=== PATIENT | female | born 1980 | race African-American/Black ===

== ENCOUNTER 2017-09-26 13:20 | Emergency (ER) | payer MEDICARE, MEDICAID ==
[2017-09-26] MEDS ORDERED: CLONIDINE HCL 0.2 MG TABLET PO ONE (13:39)
[2017-09-26] MEDS ORDERED: LISINOPRIL 10 MG TABLET PO ONE (13:45)
[2017-09-26] MEDS ORDERED: METOPROLOL TARTRATE 50 MG TABLET PO ONE (13:45)
[2017-09-26] MEDS ORDERED: TRAMADOL HCL 50 MG TABLET PO ONE (13:45)
[2017-09-26] MEDS ORDERED: FUROSEMIDE 20 MG TABLET PO ONE (13:45)
--- NOTE | 2017-09-26 13:48 | ER Document Report ---
ED Headache - General Chief Complaint: Headache Stated Complaint: BLOOD PRESSURE PROBLEMS Time Seen by Provider: 09/26/17 13:38 Notes: The patient is a 37-year-old female, past medical history hypertension, chronic headaches, presents with her usual frontal headache that occurs when she does not take her blood pressure medications. She is switching primary care physicians to [facility] and has her first appointment in 3 weeks. She last took her blood pressure medications and tramadol 2 weeks ago. She denies sudden onset of headache, blurry vision, fevers, neck stiffness, chest pain, shortness of breath, focal weakness, numbness, tingling, back pain, leg swelling , nausea or vomiting. TRAVEL OUTSIDE OF THE [place] IN LAST 30 DAYS: No - Related Data Allergies/Adverse Reactions: No Known Allergies Allergy (Verified 06/27/15 20:08) Past Medical History - General Information source: Patient - Social History Smoking Status: Current Every Day Smoker Chew tobacco use (# tins/day): No Frequency of alcohol use: None Drug Abuse: None Family History: Reviewed & Not Pertinent Patient has suicidal ideation: No Patient has homicidal ideation: No - Past Medical History Cardiac Medical History: Reports: Hx Congestive Heart Failure, Hx Hypertension Renal/ Medical History: Reports: Hx Renal Insufficiency. Denies: Hx Peritoneal Dialysis Psychiatric Medical History: Reports: Hx Anxiety, Hx Bipolar Disorder, Hx Depression Past Surgical History: Reports: Hx Tubal Ligation - Immunizations Immunizations up to date: No Hx Diphtheria, Pertussis, Tetanus Vaccination: No Review of Systems - Review of Systems Notes: REVIEW OF SYSTEMS: CONSTITUTIONAL: -fevers, -chills EENT: -eye pain, -difficulty swallowing, -nasal congestion CARDIOVASCULAR: -chest pain, -syncope. RESPIRATORY: -cough, -SOB GASTROINTESTINAL: -abdominal pain, -nausea, -vomiting, -diarrhea GENITOURINARY: -dysuria, -hematuria MUSCULOSKELETAL: -back pain, -neck pain SKIN: -rash or skin lesions. HEMATOLOGIC: -easy bruising or bleeding. LYMPHATIC: -swollen, enlarged glands. NEUROLOGICAL: -altered mental status or loss of consciousness, +headache, - neurologic symptoms PSYCHIATRIC: -anxiety, -depression. ALL OTHER SYSTEMS REVIEWED AND NEGATIVE. Physical Exam - Vital signs Vitals: Temp Pulse Resp BP Pulse Ox 98.3 F 105 H 16 217/145 H 98 09/26/17 13:34 09/26/17 13:34 09/26/17 13:34 09/26/17 13:34 09/26/17 13:34 - Notes Notes: PHYSICAL EXAMINATION: GENERAL: Well-appearing, well-nourished and in no acute distress. HEAD: Atraumatic, normocephalic. EYES: Pupils equal round and reactive to light, extraocular movements intact, sclera anicteric, conjunctiva are normal. ENT: nares patent, oropharynx clear without exudates. Moist mucous membranes. NECK: Normal range of motion, supple without lymphadenopathy LUNGS: Breath sounds clear to auscultation bilaterally and equal. No wheezes rales or rhonchi. HEART: Regular rate and rhythm without murmurs ABDOMEN: Soft, nontender, normoactive bowel sounds. No guarding, no rebound. No masses appreciated. EXTREMITIES: Normal range of motion, no pitting or edema. No cyanosis. NEUROLOGICAL: Cranial nerves grossly intact. Normal speech, normal gait. Normal sensory and motor exams. PSYCH: Normal mood, normal affect. SKIN: Warm, Dry, normal turgor, no rashes or lesions noted. Course - Re-evaluation Re-evalutation: Patient's headache is likely same as her prior headaches when she does not take her blood pressure medications. She ran out of her blood pressure medication and is requesting a refill until her new primary care appointment in 4 weeks. Will provide this to her. Her headache is not consistent with SAH, ICH or meningitis at this time. - Vital Signs Vital signs: Temp Pulse Resp BP Pulse Ox 98.3 F 105 H 16 217/145 H 98 09/26/17 13:34 09/26/17 13:34 09/26/17 13:34 09/26/17 13:34 09/26/17 13:34 - Laboratory Result Diagrams: 09/26/17 14:05 Laboratory results interpreted by me: 09/26/17 14:05 Sodium 145.7 H Est GFR (Non-Af Amer) 50 L Discharge - Discharge Clinical Impression: Headache Qualifiers: Headache type: unspecified Headache chronicity pattern: chronic headache Intractability: not intractable Qualified Code(s): R51 - Headache Hypertension Qualifiers: Hypertension type: unspecified Qualified Code(s): I10 - Essential (primary) hypertension Condition: Stable Disposition: HOME, SELF-CARE Additional Instructions: HEADACHE: The physician does not feel that the headache you are experiencing has a serious underlying cause. Most headaches are due to emotional stress, with resultant muscle tension (tension headache). Occasionally, headaches are secondary to changes in the blood vessels of the scalp (vascular headache and migraine headache). Sometimes, a headache is the first symptom of another developing illness, such as a viral infection. You have no evidence of stroke, bleeding, meningitis, or other serious cause of your headache. The treatment of headaches varies with the severity and cause of the pain. Not all headaches need pain shots. In fact, there is evidence that using narcotics for headaches may make them worse in the long run. The physician will determine the therapy that's in your best interest. If you develop a fever, if the headache is different from any you've previously experienced, or if the headache progressively worsens, then call your physician at once or go to the emergency room. ORAL NARCOTIC MEDICATION: You have been given a prescription for pain control. This medication is a narcotic. It's best taken with food, as nausea can result if taken on an empty stomach. Don't operate machinery or drive within six hours of taking this medication. Do not combine this medicine with alcohol, or with any medication which can cause sedation (such as cold tablets or sleeping pills) unless you get permission from the physician. Narcotics tend to cause constipation. If possible, drink plenty of fluids and eat a diet high in fiber and fruits. Please be aware that prescription narcotics also have the potential for abuse. People become addicted to these medications because of the general sense of wellbeing that they induce. This feeling along with a significant reduction in tension, anxiety, and aggression provides a stimulating seductive quality to these drugs. Once your pain is under control, we encourage you to discard your unused narcotics. FOLLOW-UP CARE: If you have been referred to a physician for follow-up care, call the physician s office for an appointment as you were instructed or within the next two days. If you experience worsening or a significant change in your symptoms, notify the physician immediately or return to the Emergency Department at any time for re-evaluation. HIGH BLOOD PRESSURE REQUIRING TREATMENT: Your blood pressure is high. This is called "hypertension." Your history and exam suggest that this is not a temporary problem. You need treatment of your blood pressure. If left untreated, high blood pressure greatly increases your risk of heart attack and stroke. Please don't ignore this problem. If you have blood pressure medicine but aren't using it regularly, start taking it again. Some simple things you can do to help are: Get some aerobic exercise for at least 20 minutes on a daily basis. (See your doctor before beginning any new exercise program.) Eat a low-fat diet. Lose excess weight. Avoid salty foods and avoid adding salt to any of the foods you eat. Avoid diet pills, decongestants, "energizing" herbs, and other medicines that elevate blood pressure. There are many different medicines that treat blood pressure. If your medication causes unpleasant side effects, call your doctor. There are others you can try. Treating hypertension is a life-long investment in your health. CLONIDINE (CATAPRES): Clonidine is blood-pressure medicine. It works in your brain, making the nervous system relax the blood vessels. This medicine can also be used for symptoms of narcotic withdrawal. Clonidine frequently causes dry mouth, drowsiness, and dizziness. These symptoms go away as you continue to use it. Rest for the first couple of days. Don't drive or use machinery until you're back to normal. Never stop clonidine suddenly! There can be a "rebound" severe increase in blood pressure, headache, and agitation. Be sure you always have enough of the medicine. Call the doctor if you have any new symptoms such as skin rash, weakness, severe lightheadedness, chest pain, headache, or depression. ANGIOTENSIN CONVERTING ENZYME INHIBITOR MEDICATION: "GRISEL inhibitor" drugs are used to lower high blood pressure (or to reduce the "work" of the heart in patients with heart failure). These drugs block an enzyme that makes your blood vessels constrict and makes you retain salt. The result is lower blood pressure. GRISEL inhibitors cause few side effects. The most common side effect is a dry nagging cough. Occasionally, lightheadedness may occur while you get used to the medicine. Some patients may retain extra potassium (this is a problem if you are taking potassium supplements, potassium-containing salt substitutes, or a potassium-retaining drug such as triamterene, spironolactone, or amiloride) . If you are taking lithium, the lithium level must be rechecked after starting an GRISEL inhibitor. GRISEL inhibitors should NOT be used during . Contact the doctor or return if you develop severe lightheadedness, wheeze , weakness, palpitations or other new symptoms. BETA BLOCKERS: You have been given a prescription for a beta-vish medication. This class of drugs is used for many purposes, including angina, high blood pressure , heart rhythm disturbances, tremors, and migraines. The medication works by interfering with the effects of the sympathetic nervous system (the sympathetic system has adrenaline-like effects of constricting blood vessels, increasing heart rate, and increasing blood pressure). This medication is usually well-tolerated. However, some patients have side effects such as fatigue, depression, or dizziness. Persons with asthma may develop wheezing from this medicine. Contact your doctor if you are bothered by any side effects. Do not take any cold or allergy medication without first consulting your doctor. Do not stop the medicine without consulting your doctor, as a "rebound " worsening of your condition can result. FOLLOW-UP CARE: If you have been referred to a physician for follow-up care, call the physician s office for an appointment as you were instructed or within the next two days. If you experience worsening or a significant change in your symptoms, notify the physician immediately or return to the Emergency Department at any time for re-evaluation. Prescriptions: Clonidine HCl 0.2 mg PO BID 30 Days tablet Furosemide [Lasix 20 mg Tablet] 20 mg PO QAM #30 tablet Lisinopril 40 mg PO DAILY 30 Days tablet Metoprolol Tartrate 50 mg PO BID 30 Days tablet Tramadol HCl 50 mg PO Q8H PRN #15 tablet PRN Reason: Forms: Elevated Blood Pressure Referrals: [facility] [Outside] - Follow up as needed
[2017-09-26 14:52] LABS: ALANINE AMINOTRANSFERASE 32 U/L (9-52); ALBUMIN 4.7 g/dL (3.5-5.0); ALKALINE PHOSPHATASE 96 U/L (38-126); ANION GAP 15 (5-19); ASPARTATE AMINO TRANSFERASE 26 U/L (14-36); BILIRUBIN,DIRECT 0.4 mg/dL (0.0-0.4); BILIRUBIN,TOTAL 0.5 mg/dL (0.2-1.3); BLOOD UREA NITROGEN 16 mg/dL (7-20); CALCIUM 10.2 mg/dL (8.4-10.2); CARBON DIOXIDE 28 mmol/L (22-30); CHLORIDE 103 mmol/L (98-107); GLUCOSE 77 mg/dL (75-110); POTASSIUM 4.3 mmol/L (3.6-5.0); SODIUM 145.7 mmol/L (137-145)
[2017-09-26 15:15] VITALS: BP 205/124
[2017-09-26] MEDS ORDERED: ACETAMINOPHEN 325 MG TABLET PO ONE (15:15)
[2017-09-26] MEDS ORDERED: NAPROXEN 250 MG TABLET PO ONE (15:15)
== END 2017-09-26 15:22 | disposition home or self-care (01) ==
LOC: ER 13:20
DX: R51 Headache (principal); F17.200 Nicotine dependence, unspecified, uncomplicated; I50.9 Heart failure, unspecified; I11.0 Hypertensive heart disease with heart failure
CPT/HCPCS: 99283; 36415; 80053; A9270 ×7

== ENCOUNTER 2018-04-03 19:17 | Emergency (ER) | payer MEDICARE, MEDICAID ==
[2018-04-03] MEDS ORDERED: CLONIDINE HCL 0.2 MG TABLET PO ONE ×2 (20:08→20:33)
--- NOTE | 2018-04-03 20:09 | ER Document Report ---
ED Medical Screen (RME) - General Chief Complaint: Headache Stated Complaint: HEADACHE, BLOOD PRESSURE CONSERNS Time Seen by Provider: 04/03/18 20:07 Notes: 37 years old female with a history of hypertension taking metoprolol lisinopril clonidine and also Lasix. Has not taken any medications today only took 1 of them yesterday presents with a headache and an elevated blood pressure over 200 systole. TRAVEL OUTSIDE OF THE [place] IN LAST 30 DAYS: No - Related Data Allergies/Adverse Reactions: No Known Allergies Allergy (Verified 06/27/15 20:08) Past Medical History - Past Medical History Cardiac Medical History: Reports: Hx Congestive Heart Failure, Hx Hypertension Renal/ Medical History: Reports: Hx Renal Insufficiency. Denies: Hx Peritoneal Dialysis Psychiatric Medical History: Reports: Hx Anxiety, Hx Bipolar Disorder, Hx Depression Past Surgical History: Reports: Hx Tubal Ligation - Immunizations Immunizations up to date: No Hx Diphtheria, Pertussis, Tetanus Vaccination: No
[2018-04-03] MEDS ORDERED: LISINOPRIL 10 MG TABLET PO ONE (20:32)
[2018-04-03] MEDS ORDERED: AMLODIPINE BESYLATE 5 MG TABLET PO ONE (20:33)
[2018-04-03] MEDS ORDERED: METOPROLOL TARTRATE 50 MG TABLET PO ONE (20:33)
[2018-04-03] MEDS ORDERED: METOCLOPRAMIDE HCL INJ/PF 10 MG/2 ML SDV IV ONE (20:44)
--- NOTE | 2018-04-03 20:55 | RADIOLOGY REPORT (SQ) ---
EXAM DESCRIPTION: CT HEAD WITHOUT COMPLETED DATE/TIME: 04/03/2018 8:39 pm REASON FOR STUDY: Headache COMPARISON: None. TECHNIQUE: Axial images acquired through the brain without intravenous contrast. Images reviewed wi th bone, brain and subdural windows. Additional sagittal and coronal reconstructions were generated. Images stored on PACS. All CT scanners at this facility use dose modulation, iterative reconstruction, and/or weight based d osing when appropriate to reduce radiation dose to as low as reasonably achievable (ALARA). [facility]: Dose Right [facility]: CareDose [facility]: Dose Right [facility]: Teradose 4D [facility]: DailyBurn RADIATION DOSE: CT Rad equipment meets quality standard of care and radiation dose reduction techniq ues were employed. CTDIvol: 53.2 mGy. DLP: 1070 mGy-cm. mGy. LIMITATIONS: None. FINDINGS: VENTRICLES: Normal size and contour. CEREBRUM: No masses. No hemorrhage. No midline shift. No evidence for acute infarction. Normal gra y/white matter differentiation. No areas of low density in the white matter. CEREBELLUM: No masses. No hemorrhage. No alteration of density. No evidence for acute infarction. EXTRAAXIAL SPACES: No fluid collections. No masses. ORBITS AND GLOBE: No intra- or extraconal masses. Normal contour of globe without masses. CALVARIUM: No fracture. PARANASAL SINUSES: No fluid or mucosal thickening. SOFT TISSUES: No mass or hematoma. OTHER: No other significant finding. IMPRESSION: NORMAL BRAIN CT WITHOUT CONTRAST. EVIDENCE OF ACUTE STROKE: NO. COMMENT: Quality ID # [id number]: Final reports with documentation of one or more dose reduction techniques (e.g., Automated exposure control, adjustment of the mA and/or kV according to patient size, use of iterative reconstruction technique) TECHNICAL DOCUMENTATION: JOB ID: [id number] [employer]- All Rights Reserved Reading location - IP/workstation name: [email or web address]
--- NOTE | 2018-04-03 20:59 | ER Document Report ---
ED General - General Chief Complaint: Headache Stated Complaint: HEADACHE, BLOOD PRESSURE CONSERNS Time Seen by Provider: 04/03/18 20:07 Notes: Patient is a 37-year-old female with a past medical history of essential hypertension currently off all medications. Patient states she ran out 2 days ago, has been unable to get the refill that she does not currently have a primary care physician. She notes that since running out of her medications she has noticed her blood pressures are much higher and she has had a dull, throbbing, global headache. Nothing improves or worsens the headache. States this feels the same as when she has had headaches in the past with high blood pressure. She denies any abrupt onset of the headache. No weakness, numbness, confusion, fever or constitutional symptoms. No chest pain or shortness of breath. TRAVEL OUTSIDE OF THE [place] IN LAST 30 DAYS: No - Related Data Allergies/Adverse Reactions: No Known Allergies Allergy (Verified 06/27/15 20:08) Past Medical History - General Information source: Patient - Social History Smoking Status: Current Every Day Smoker Chew tobacco use (# tins/day): No Frequency of alcohol use: Occasional Drug Abuse: None Lives with: Family Family History: Reviewed & Not Pertinent Patient has suicidal ideation: No Patient has homicidal ideation: No - Past Medical History Cardiac Medical History: Reports: Hx Congestive Heart Failure, Hx Hypertension Renal/ Medical History: Reports: Hx Renal Insufficiency. Denies: Hx Peritoneal Dialysis Psychiatric Medical History: Reports: Hx Anxiety, Hx Bipolar Disorder, Hx Depression Past Surgical History: Reports: Hx Tubal Ligation - Immunizations Immunizations up to date: No Hx Diphtheria, Pertussis, Tetanus Vaccination: No Review of Systems - Review of Systems Notes: Constitutional: Negative for fever. HENT: Negative for sore throat. Eyes: Negative for visual changes. Cardiovascular: Negative for chest pain. Respiratory: Negative for shortness of breath. Gastrointestinal: Negative for abdominal pain, vomiting or diarrhea. Genitourinary: Negative for dysuria. Musculoskeletal: Negative for back pain. Skin: Negative for rash. Neurological: Positive for headache 10 point ROS negative except as marked above and in HPI. Physical Exam - Vital signs Vitals: Temp Pulse Resp BP Pulse Ox 99.0 F 81 20 211/125 H 99 04/03/18 19:58 04/03/18 19:58 04/03/18 19:58 04/03/18 19:58 04/03/18 19:58 Interpretation: Hypertensive Notes: PHYSICAL EXAMINATION: GENERAL: Well-appearing, well-nourished and in no acute distress. HEAD: Atraumatic, normocephalic. EYES: Pupils equal round and reactive to light, extraocular movements intact, sclera anicteric, conjunctiva are normal. ENT: nares patent, oropharynx clear without exudates. Moist mucous membranes. NECK: Normal range of motion, supple without lymphadenopathy LUNGS: Breath sounds clear to auscultation bilaterally and equal. No wheezes rales or rhonchi. HEART: Regular rate and rhythm without murmurs ABDOMEN: Soft, nontender, normoactive bowel sounds. No guarding, no rebound. No masses appreciated. EXTREMITIES: Normal range of motion, no pitting or edema. No cyanosis. NEUROLOGICAL: Face symmetric. Tongue protrudes midline. Extraocular motions intact. Pupils are 2 mm and equally reactive. Normal speech, normal gait. 5 out of 5 strength in both the distal and proximal upper and lower extremities bilaterally. Sensation is grossly intact throughout. Finger to nose testing normal. Pronator drift normal. PSYCH: Normal mood, normal affect. SKIN: Warm, Dry, normal turgor, no rashes or lesions noted. Course - Re-evaluation Re-evalutation: 04/03/18 21:00 Patient presents with significant elevation of her blood pressure due to being out of all 4 of her blood pressure medications for the past 2 days. The patient does present with a global, throbbing, aching headache that started gradually and has worsened over a period of time roughly 12-24 hours. She states this headache feels exactly the same as when she has had headaches in the context of high blood pressure in the past when off of her medications. I do not suspect an intracranial bleed or subarachnoid hemorrhage. Of note a CT was obtained in triage, has been reviewed and is noted to be normal although I do not believe this was indicated. Her blood pressure has improved after receiving her normal blood pressure medications at home. I have transitioned her from furosemide to amlodipine. I have advised outpatient follow-up to for chronic management of her blood pressure. She otherwise is very well in appearance and in no distress of any kind. At this time will discharge with return precautions and follow-up recommendations. Verbal discharge instructions given a the bedside and opportunity for questions given. Medication warnings reviewed. Patient is in agreement with this plan and has verbalized understanding of return precautions and the need for primary care follow-up in the next 24-72 hours. - Vital Signs Vital signs: Temp Pulse Resp BP Pulse Ox 98.6 F 72 20 155/105 H 100 04/03/18 22:00 04/03/18 22:50 04/03/18 20:12 04/03/18 22:50 04/03/18 22:00 - Diagnostic Test Radiology reviewed: Image reviewed, Reports reviewed Radiology results interpreted by me: 04/03/18 21:01 CT head: No acute intrarenal bleed or mass Discharge - Discharge Clinical Impression: Essential hypertension, Medication refill Headache Qualifiers: Headache type: unspecified Headache chronicity pattern: acute headache Intractability: not intractable Qualified Code(s): R51 - Headache Condition: Good Disposition: HOME, SELF-CARE Additional Instructions: You were seen today for blood pressure that was high. This is a long-term risk factor for multiple medical problems including heart attack and stroke. However, the blood pressure in of itself will not cause you to have an acute stroke or heart attack over the course of just several days or weeks. You need to have a gradual reduction of your blood pressure back to normal levels over the next several months in conjunction with your primary care physician. Please take all medications as prescribed. Return if you develop headache, weakness, numbness, chest pain, pass out, or have any other symptoms that are concerning to you. Prescriptions: Amlodipine Besylate [Norvasc 5 mg Tablet] 5 mg PO DAILY #30 tablet Clonidine [Catapres-Tts 2 (0.2 mg/24 Hr) Transderm Ptc] 1 each TD DAILY #4 patch.tdwk Lisinopril [Prinivil 40 mg Tablet] 40 mg PO DAILY #30 tablet Metoclopramide HCl [Reglan 10 mg Tablet] 1 - 2 tab PO ASDIR PRN #25 tablet PRN Reason: Metoprolol Tartrate [Lopressor 100 mg Tablet] 100 mg PO Q12 #60 tab Referrals: DARIUS GARCIA, [facility] [Primary Care Provider] - Follow up as needed
[2018-04-03] MEDS ORDERED: KETOROLAC TROMETHAMINE INJ/PF 30 MG/1 ML SDV IV ONE (22:10)
[2018-04-03 23:19] VITALS: BP 155/105
== END 2018-04-03 22:49 | disposition home or self-care (01) ==
LOC: ER 19:17
DX: R51 Headache (principal); I50.9 Heart failure, unspecified; I11.0 Hypertensive heart disease with heart failure; Z98.51 Tubal ligation status
CPT/HCPCS: 99284; 96374; 70450; A9270 ×4; J2765

== ENCOUNTER 2019-07-30 06:25 | Emergency (ER) | payer MEDICARE, MEDICAID ==
[2019-07-30 06:41] VITALS: BP 136/93
[2019-07-30] MEDS ORDERED: ALPRAZOLAM 0.5 MG TABLET PO ONE (07:25)
--- NOTE | 2019-07-30 07:30 | ER Document Report ---
HPI - HPI Time Seen by Provider: 07/30/19 07:06 Pain Level: 1 Context: 39-year-old female presents for refills on Xanax and Lunesta. Patient states she has been out for the past 3 days. Patient states she missed her appointment with mental health because she was out of town. - REPRODUCTIVE Reproductive: DENIES: : Past Medical History - Social History Smoking Status: Current Some Day Smoker Chew tobacco use (# tins/day): No Frequency of alcohol use: Occasional Drug Abuse: None Family History: Reviewed & Not Pertinent Patient has suicidal ideation: No Patient has homicidal ideation: No - Past Medical History Cardiac Medical History: Reports: Hx Congestive Heart Failure, Hx Hypertension Renal/ Medical History: Reports: Hx Renal Insufficiency. Denies: Hx Peritoneal Dialysis Psychiatric Medical History: Reports: Hx Anxiety, Hx Bipolar Disorder, Hx Depression Past Surgical History: Reports: Hx Tubal Ligation - Immunizations Immunizations up to date: No Hx Diphtheria, Pertussis, Tetanus Vaccination: No Vertical Provider Document - CONSTITUTIONAL Agree With Documented VS: Yes Notes: GENERAL: Well-appearing, well-nourished and in no acute distress. HEAD: Atraumatic, normocephalic. EYES: Extraocular movements intact, sclera anicteric, conjunctiva are normal. NECK: Normal range of motion, supple without lymphadenopathy or JVD. Lungs: No tachypnea. No signs of respiratory distress. EXTREMITIES: Normal range of motion, no pitting or edema. No clubbing or cyanosis. NEUROLOGICAL: Cranial nerves II through XII grossly intact. Normal speech, normal gait. PSYCH: Anxious. SKIN: Warm, Dry, normal turgor, no rashes or lesions noted. - INFECTION CONTROL TRAVEL OUTSIDE OF THE [place] IN LAST 30 DAYS: No Course - Re-evaluation Re-evalutation: 07/30/19 39-year-old female presents requesting refills on her Xanax and [place] nesta. Patient went to her PCP and was told it was too early to refill these. Patient states she did have an appointment with her mental health provider but missed it because she was out of town. Discussed with patient that we do not refill prescriptions of Xanax or Lunesta from the ER. Discussed other options including Atarax with patient. Patient states she will try the Atarax. Patient also given further resources for outpatient mental health. Return precautions given. Patient given close follow-up with PCP. Patient voices understanding and agrees with plan of care. - Vital Signs Vital signs: Temp Pulse Resp BP Pulse Ox 98.4 F 81 20 136/93 H 100 07/30/19 06:40 07/30/19 06:40 07/30/19 06:40 07/30/19 06:40 07/30/19 06:40 Discharge - Discharge Clinical Impression: Encounter for medical screening examination, Anxiety Condition: Stable Disposition: HOME, SELF-CARE Instructions: Anxiety ([facility]) Additional Instructions: Please take Atarax as prescribed. Please follow-up with 1 of the resources given to you. Please follow-up with your primary care doctor for further refills of your Xanax and Lunesta. Return immediately to ER if you start having any worsening symptoms, including chest pain, shortness of breath, thoughts of wanting to hurt yourself or anyone else, fever, abdominal pain, nausea/vomiting, or any other symptoms that are concerning to you. Prescriptions: Hydroxyzine Pamoate [Vistaril 50 mg Capsule] 50 mg PO DAILY #15 capsule Referrals: DARIUS GARCIA NP [[facility]] - Follow up in 3-5 days
== END 2019-07-30 08:01 | disposition home or self-care (01) ==
LOC: ER 06:25
DX: F41.9 Anxiety disorder, unspecified (principal); Z76.0 Encounter for issue of repeat prescription; I10 Essential (primary) hypertension; F17.200 Nicotine dependence, unspecified, uncomplicated
CPT/HCPCS: 99281; A9270

== ENCOUNTER 2019-08-10 19:27 | Emergency (ER) | payer MEDICARE, MEDICAID ==
[2019-08-10 19:34] VITALS: BP 135/93
--- NOTE | 2019-08-10 19:58 | ER Document Report ---
HPI - HPI Patient complains to provider of: Anxiety, insomnia Time Seen by Provider: 08/10/19 19:42 Onset: Last week Onset/Duration: Persistent Pain Level: 3 Context: Patient presents complaining of anxiety and insomnia. Patient states that she has been unable to follow-up with her mental health provider due to the Covid 19 outbreak that is because offices to close. Patient states that they were able to refill some of her medications but not these as these are controlled substances. Patient states that the situation with the Covid 19 has made her very anxious and worried about the health of her children and grandchildren further worsening her anxiety and insomnia symptoms. Associated Symptoms: Other - Anxiety, insomnia Exacerbated by: Denies Relieved by: Denies Similar symptoms previously: Yes Recently seen / treated by doctor: No - ROS ROS below otherwise negative: Yes Systems Reviewed and Negative: Yes All other systems reviewed and negative - CONSTITUTIONAL Constitutional: DENIES: Fever, Chills - CARDIOVASCULAR Cardiovascular: REPORTS: Chest pain - intermittent - GASTROINTESTINAL Gastrointestinal: DENIES: Nausea - REPRODUCTIVE Reproductive: DENIES: : - DERM Skin Color: Normal Skin Problems: None Past Medical History - General Information source: Patient - Social History Smoking Status: Current Every Day Smoker Chew tobacco use (# tins/day): No Frequency of alcohol use: Occasional Drug Abuse: Marijuana Lives with: Family Family History: Reviewed & Not Pertinent Patient has suicidal ideation: No Patient has homicidal ideation: No - Past Medical History Cardiac Medical History: Reports: Hx Congestive Heart Failure, Hx Hypertension Renal/ Medical History: Reports: Hx Renal Insufficiency. Denies: Hx Peritoneal Dialysis Psychiatric Medical History: Reports: Hx Anxiety, Hx Bipolar Disorder, Hx Depression Past Surgical History: Reports: Hx Tubal Ligation - Immunizations Immunizations up to date: No Hx Diphtheria, Pertussis, Tetanus Vaccination: No Vertical Provider Document - CONSTITUTIONAL Agree With Documented VS: Yes Exam Limitations: No Limitations General Appearance: WD/WN Notes: Patient anxious, tearful when discussing her situation and concerns - INFECTION CONTROL TRAVEL OUTSIDE OF THE [place] IN LAST 30 DAYS: No - HEENT HEENT: Atraumatic, Normocephalic - NECK Neck: Normal Inspection, Supple - RESPIRATORY Respiratory: Breath Sounds Normal, No Respiratory Distress, Chest Non-Tender - CARDIOVASCULAR Cardiovascular: Regular Rate, Regular Rhythm, No Murmur - BACK Back: Normal Inspection - MUSCULOSKELETAL/EXTREMETIES Musculoskeletal/Extremeties: MAEW, FROM - NEURO Level of Consciousness: Awake, Alert Motor/Sensory: No Motor Deficit - DERM Integumentary: Warm, Dry Course - Re-evaluation Re-evalutation: 08/10/19 19:54 Reviewed controlled substance database did demonstrate the patient has had prescriptions for the Lunesta and Xanax in the past but recently ran out earlier this month. Due to the Covid 19 outbreak her mental health office has closed and she cannot get refills of her medication and the situation with the Covid 19 outbreak is made her more anxious causing her to have difficulty to sleep. Patient without any suicidal or homicidal ideations. - Vital Signs Vital signs: Temp Pulse Resp BP Pulse Ox 98.8 F 81 13 135/93 H 100 08/10/19 19:32 08/10/19 19:32 08/10/19 19:32 08/10/19 19:32 08/10/19 19:32 Discharge - Discharge Clinical Impression: Anxiety, Medication refill Insomnia Qualifiers: Insomnia type: unspecified Qualified Code(s): G47.00 - Insomnia, unspecified Condition: Stable Disposition: HOME, SELF-CARE Instructions: Anxiety ([facility]) Additional Instructions: Return immediately for any new or worsening symptoms Followup with your primary care provider, call tomorrow to make a followup appointment Follow-up with your mental health provider for recheck and refill of your medications Prescriptions: Eszopiclone 3 mg PO QHS PRN #7 tablet PRN Reason: Alprazolam 1 mg PO BID PRN #15 tablet PRN Reason: Referrals: [facility] [Provider Group] - Follow up tomorrow
== END 2019-08-10 20:01 | disposition home or self-care (01) ==
LOC: ER 19:27
DX: Z76.0 Encounter for issue of repeat prescription (principal); F41.9 Anxiety disorder, unspecified; G47.00 Insomnia, unspecified; F17.200 Nicotine dependence, unspecified, uncomplicated; I50.9 Heart failure, unspecified; I11.0 Hypertensive heart disease with heart failure; Z98.51 Tubal ligation status
CPT/HCPCS: 99281

== ENCOUNTER → 2019-11-26 | Outpatient (CLI) | payer MEDICARE, MEDICAID ==
--- NOTE | 2019-11-26 15:48 | ER RDC ASSESSMENT REPORT ---
Intake - In the Last 14 days Have you traveled outside [place]?: No Have you been in close contact with someone CONFIRMED: Yes Worked in Healthcare?: No - Symptoms Subjective Fever([place] feverish): No Chills: No Muscule Aches: No Runny Nose: Yes Sore Throat: No Cough (New or worsening chronic cough): No Shortness of breath: No Nausea or Vomiting: No Headache: Yes --How many day(s)?: X2 days Abdominal Pain: No Diarrhea(3 or more loose stools in last 24 hours): No - Do you have any of the following Chronic lung disease: Asthma or emphysema or COPD: No Cystic Fibrosis: No Diabetes: No High Blood Pressure: Yes Cardiovascular Disease: Yes Chronic Kidney Disease: No Chronic Liver Disease: No Chronic blood disorder like Sickle Cell Disease: No Weak immune system due to disease or medication: No Neurologic condition that limits movement: No Developmental delay - Moderate to Severe: No Recent (within past 2 weeks) or current : No Morbid Obesity (>100 pounds over ideal weight): No Obesity Comment: Height 5 feet 3 inches weight 164 pounds Other Comment: Patient also has history of anxiety bipolar PTSD - Objective Temperature: 98 F Pulse Rate: 97 Respiratory Rate: 20 Blood Pressure: 152/87 O2 Sat by Pulse Oximetry: 99 Objective: Given above, testing performed: If Testing Performed: Test Specimen Type Sent to General - General Information source: Patient Notes: Patient here at [facility] for COVID testing 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 Patient reports started feeling symptoms days ago primarily symptoms with a headache occasional scratchy throat and runny nose similar to allergies. Patient reports sees [facility] as PCP and has not acted them at this point. - Related Data Allergies/Adverse Reactions: No Known Allergies Allergy (Verified 06/27/15 20:08) Past Medical History - General Information source: Patient - Social History Smoking Status: Current Every Day Smoker Cigarette use (# per day): Yes - Smokes a half a pack per day Smoking Education Provided: Yes - Urged to quit smoking Family History: Reviewed & Not Pertinent - Past Medical History Cardiac Medical History: Reports: Hx Congestive Heart Failure, Hx Hypertension Renal/ Medical History: Reports: Hx Renal Insufficiency. Denies: Hx Peritoneal Dialysis Psychiatric Medical History: Reports: Hx Anxiety, Hx Bipolar Disorder, Hx Depression Past Surgical History: Reports: Hx Tubal Ligation Physical Exam - General General appearance: Appears well, Alert In distress: None Notes: PHYSICAL EXAMINATION: GENERAL: Well-appearing and in no acute distress. HEAD: Atraumatic, normocephalic. EYES: sclera anicteric, conjunctiva are normal. ENT: nares patent. Moist mucous membranes. NECK: Normal range of motion, supple without lymphadenopathy LUNGS: CTAB and equal. No wheezes rales or rhonchi. Resp even and unlabored. Lung sounds clear. HEART: Regular rate and rhythm without murmurs ABDOMEN: Soft, nontender, normal bowel sounds, no guarding. EXTREMITIES: No cyanosis. NEUROLOGICAL: Normal speech. PSYCH: Normal mood, normal affect. SKIN: Warm, Dry, normal turgor, Diagnostic Results Laboratory Results: Patient informed of negative rapid strep and negative rapid flu results. pending strep culture pending cover testing results. Patient provided instructions regarding COVID to include: As a person under investigation for Covid 19, the [place] department of Health and Human Services, division of public health advises you to adhere to the following guidance until your test results are reported to you. If your test result is positive, you will receive additional information from your provider and your local health department at that time. Remain at home until you are cleared by the health provider or public health authorities. Keep a log of visitors to your home, notify any visitors to your home of your isolation status. If you plan to move to a new address or leave the [facility], notify the local health department in your County. Call your doctor or seek care if you have an urgent medical need. Before seeking medical care, call ahead to get instructions from the provider before arriving at the medical office clinic or hospital. Notify them that you are being tested for the virus that causes Covid 19 so that arrangements can be made, as necessary, to prevent transmission to others in the healthcare setting. Next, notify the local health department in your county. If a medical emergency arises and you need to call 911, inform the first responders that you are being tested for the virus that causes Covid 19. Next, notify the local health department in your county. Patient Education/Counseling Counseling/Education: Patient presents with upper respiratory symptoms worrisome for possible Covid 19. Patient does not have emergency worring symptoms such as difficulty breathing, shortness of breath, chest pain, pressure, confusion or cyanosis. Patient appears suitable for discharge. Patient instructed to follow-up with PCP at [facility]. To ED for persistent or worsening symptoms. patient's vital signs are stable and patient is nontoxic in appearance. Good return precautions have been discussed with patient, patient verbalized understanding and is agreeable with discharge plan of care at this time. RDC Discharge - Discharge Clinical Impression: COVID - 19 SCREENING Condition: Stable Disposition: Home; Selfcare
[2019-11-26 16:21] LABS: A TYPE INFLUENZA AG NEGATIVE (NEGATIVE); B INFLUENZA AG NEGATIVE (NEGATIVE)
[2019-11-26 16:42] VITALS: BP 152/87
== END ==
LOC: RDC 13:45
PROVIDERS: ATTEND Nurse Practitioner Family
DX: Z20.828 Contact with and (suspected) exposure to other viral communicable diseases (principal); J06.9 Acute upper respiratory infection, unspecified; R09.89 Other specified symptoms and signs involving the circulatory and respiratory systems; R51 Headache; I10 Essential (primary) hypertension; F17.210 Nicotine dependence, cigarettes, uncomplicated; N28.9 Disorder of kidney and ureter, unspecified; F41.9 Anxiety disorder, unspecified; F31.9 Bipolar disorder, unspecified
CPT/HCPCS: 87070; 87880; 87804; U0003; C9803; 87635; 99201; 99211